=== PATIENT | female | born 1950 | race Caucasian/White ===

== ENCOUNTER 2020-07-28 16:45 | Emergency (ER) | payer MEDICARE ==
[~2020-07-28] VITALS: Ht 154.9 cm; Wt 63.5 kg
[2020-07-28 17:27] VITALS: Ht 154.9 cm; Wt 63.5 kg
[2020-07-28 20:09] LABS: BASOPHIL % 2.3 % (0-2); PLATELET COUNT 370 x10^3mcL (130-400); RED CELL DISTRIBUTION WIDTH 13.6 % (11.5-14.5)
[2020-07-28 20:11] LABS: CARBON DIOXIDE 28.7 mmol/L (21-32); CHLORIDE SERUM 103 mmol/L (98-107); CREATININE SERUM 0.7 mg/dL (0.6-1.0); GFR1 > 60 mL/min; GLUCOSE SERUM 112 mg/dL (74-106); POTASSIUM SERUM 4.1 mmol/L (3.5-5.1); SODIUM SERUM 141 mmol/L (136-145)
[2020-07-28 20:15] LABS: ALKALINE PHOSPHATASE 141 U/L (46-116); ALT/SGPT 33 U/L (14-59); AST/SGOT 29 U/L (15-37); BILIRUBIN TOTAL 0.48 mg/dL (0.20-1.00); TOTAL PROTEIN, SERUM 8.5 g/dL (6.4-8.2)
[2020-07-28 21:46] VITALS: BP 164/77
== END 2020-07-28 21:46 | disposition home or self-care (01) ==
LOC: ED 16:45
PROVIDERS: Emergency Medicine
DX: R42 Dizziness and giddiness (principal); J02.9 Acute pharyngitis, unspecified; I10 Essential (primary) hypertension; Z20.828 Contact with and (suspected) exposure to other viral communicable diseases
CPT/HCPCS: J2765; J7030; J8597; U0003